=== PATIENT | male | born 1945 | race Caucasian/White ===

== ENCOUNTER 2017-02-24 08:10 | Day surgery (SDC) | payer MEDICARE, OTHER ==
[~2017-02-24] VITALS: Ht 182.9 cm; Wt 117.0 kg
[~2017-02-24 08:10] MED LIST: ASPI-973 PO; CHOL200025 PO; CREST10T PO; DULO60CA42 PO; FURO40TA4 PO; GABA-500 PO; INSU3INS3 SUBQ; LIP40 PO; LISI-567 PO; LORA2TAB PO; Lactated Ringer's 1,000 ML IV ONE; METF500T4 PO; METO10TA3 PO; OXYC-474 PO; POTA10TA12 PO; PREG75CA PO; RIVA15TA PO; SOTA80TA PO; TAMS0.4C98 PO; ZYL100 PO
[2017-02-24] MEDS ORDERED: Propofol 10,000 mCg/mL 20 mL Inj ONE (08:11)
[2017-02-24 08:21] VITALS: BP 121/69; PULSE 64; RESP 16; O2SAT 96
[2017-02-24] MEDS ORDERED: Lactated Ringer's 1,000 ML IV SCH (08:23)
[2017-02-24] MEDS ORDERED: Ondansetron 2 mg/mL 2 mL Inj IVPUSH PRN (08:25)
[2017-02-24] MEDS ORDERED: MetoCLOpramide 5 mg/mL 2 mL Inj IVPUSH PRN (08:25)
--- NOTE | 2017-02-24 08:38 | PCM.HPANE ---
Patient Data Date of Service: Feb 24, 2017 Surgeon Admitting Provider: Attending Provider:Angelo Saunders MD Primary Care Physician:Bahman Neal MD Other Provider:Bernardo Solano Anesthesia Reason for Visit Colon Cancer Screening, Gerd Ht/WT & BMI Height (Feet): 6 Height (Inches): 0 Weight (Kilograms): 117 Body Mass Index 34.00 Allergies Coded Allergies: No Known Allergies (Verified Allergy, Unknown, 02/23/17) Past Anesthesia History Anesthesia History: Denies:: Abnormal Airway, Anesthesia Reactions, Difficult Intubation, Fam Anesthesia Reaction, Fam Malignant Hypertherm, Malignant Hyperthermia Diabetes History Hx Diabetes?: Yes Type of Diabetes: Type II Glycemic Control: Oral Medication Current Bedside Blood Glucose: 110 MRSA MRSA: No Medications Blood Thinner: Aspirin, Xarelto Last Dose Blood Thinner: Feb 19, 2017 Home Meds Incl Beta [place]: Yes Date Beta [place] Taken: Feb 24, 2017 Time Beta [place] Taken: 0740 Reported Medications Insuln Asp Prt/Insulin Aspart (NovoLOG 70/30 U100 Insulin Flexpen)100 Unit/Ml Unit1 Unit SUBQ HS #1 PENINJ Ref 0 02/23/17 Cholecalciferol (Vitamin D3) (Vitamin D3)2,000 Unit Tablet2,000 Unit PO DAILY 02/23/17 Rivaroxaban (Xarelto)15 Mg Kdnocs47 Mg PO HS 02/23/17 Pregabalin (Lyrica)75 Mg Fppfdll23 Mg PO BID 30 Days Ref 0 02/23/17 Duloxetine (Cymbalta)60 Mg Capsule.dr60 Mg PO DAILY Ref 0 02/23/17 Atorvastatin (Lipitor)40 Mg Tksuaf14 Mg PO DAILY Ref 0 02/23/17 Aspirin 81 Mg Zkrnoo95 Mg PO DAILY Ref 0 02/23/17 Allopurinol 100 Mg Johyyc224 Mg PO BID Ref 0 02/23/17 Potassium Chloride ER 10 Meq Jdgcmw58 Meq PO DIRECTED Ref 0 TAKE WITH FOOD 09/15/15 Gabapentin 100 Mg Lorgjcl998 Mg PO HS 30 Days Ref 0 09/15/15 Lisinopril 20 Mg Ectmdt56 Mg PO DAILY 30 Days Ref 0 09/15/15 Tamsulosin (Flomax)0.4 Mg Capsule0.4 Mg PO DAILY PRN For Urinary Retention Ref 0 09/15/15 Sotalol HCl (Sotalol)80 Mg Vbjotj795 Mg PO BID 30 Days Ref 0 09/15/15 Metformin 500 Mg Aezcly547 Mg PO DAILY Ref 0 09/15/15 Oxycodone (Roxicodone)5 Mg Rguhpc66 Mg PO 2-4 times a day PRN For Pain Ref 0 09/15/15 Metoclopramide 10 Mg Tqmvst71 Mg PO BID PRN For Nausea Ref 0 09/15/15 Lorazepam 2 Mg Tablet2 Mg PO QID PRN For Anxiety Ref 0 09/15/15 Furosemide 40 Mg Ydmmmm55 Mg PO EVERY Tuesday09/15/15 Duloxetine (Cymbalta)60 Mg Capsule.dr60 Mg PO DAILY Ref 0 09/15/15 Rosuvastatin Calcium (Crestor)10 Mg Rumrsp77 Mg PO DAILY 30 Days Ref 0 09/15/15 History History of ENT Problems?: Yes HEENT History: Positive for:: Cataracts (S/P R CORNEAL TRANSPLANT/RT CATARACT EXTRACTION) Dysphagia Hearing Problem Sinus Problem (Chronic sinus difficulty) Denies:: Abnormal Airway Difficult Intubation Denture Type: None Teeth Condition: Within Normal Limits Hx of Heart Problems?: Yes Cardiovascular History: Positive for:: Atrial Fibrillation Congestive Heart Failure (R/T TO MARQUIS) Edema (LASIX PRN) Hypertension Irregular Heartbeat (HX OF MARQUIS ) Valvular Heart Disease Denies:: AICD Cardiac Surgery Chest Pain Heart Murmur (ECHO/SARAH 01/2013) Pacemaker Thrombophlebitis Hx of Respiratory Problem?: No Respiratory History: Positive for:: Dyspnea (R/T HIATAL HERNIA) Use of C-PAP Machine (YAYO+ (PROBABLY TRIGGER FOR A FIB) SLEEP STUDY 2010 /RECHECK 05/2013) Denies:: Asthma COPD Chest Surgery Emphysema Hemoptysis Pneumonia Tuberculosis Hx Neurologic Problems?: Yes Neurological History: Positive for:: Dizziness Headaches Denies:: Alzheimer's Disease CVA Dementia Parkinson's Disease Seizures Hx of GI Problems?: Yes Gastrointestinal History: Positive for:: Gastroesphageal Reflux Hx of Problems?: Yes Genitourinary History: Positive for:: Kidney Stones Denies:: HX of Hemodialysis Urinary Tract Infection HX of Peritoneal Dialysis: No Male Hx: Denies:: Prostate Problems Scrotal Mass Testicular Surgery Skin History: Denies:: History Skin Disorders? Pressure Ulcers Hx Musculoskeletal Problems?: Yes Musculoskeletal History: Positive for:: Back Injury (Chronic back pain) Degenerative Joint Fibromyalgia Musculoskeletal Trauma (S/P ORIF FX LT ANKLE) Denies:: Joint Replacement Hx of Psycho/Social Problems?: Yes Psycho Social History: Positive for:: Anxiety Hx Depression Denies:: Bipolar Disorder Suicide Attempt Hx Surgeries?: Yes (aortic valve/replacement,emily fundiplication,lt ankle, TNA) Hx Any Other Health Problems?: Yes Other History: Positive for:: Hospitalization (hernia repair, see surgeries below.) Denies:: Cancer Endocrine Disease Thyroid Disease History Blood Transfusions: Denies:: Blood Transfuse Reaction Blood Transfusions Hx Diabetes: Yes Hx Alcohol Use: Yes (occas)Hx Substance Use: No Smoking Status: Never Smoker Unknown if Ever Smoker Have You Smoked inLast 12 mo: No Stop/Bang Treated for Sleep Apnea?: Yes Do You Have a CPAP Machine?: Yes YAYO Risk Assessment: High Risk, =/>3 Yes Risk Assessment Category Category 1A: Patient has history of documented sleep apnea, and HAS NOT received any narcotic, sedative or anesthesia administration during this stay. Category 1B: Patient has history of documented sleep apnea, and HAS received any narcotic , sedative or anesthesia administration during this stay Category 2: Patient has SUSPECTED Obstructive Sleep Apnea, and HAS received any narcotic , sedative or anesthesia administration during this stay. Category 3: Patient has SUSPECTED Obstructive Sleep Apnea and HAS NOT received narcotic, sedative or anesthesia administration during this stay. Category 4: Outpatient in Procedural Areas with known sleep apnea or who screen positive for High Risk via the STOP/BANG questionnaire. Exam Exam Vital Signs Vital Signs Date Time Temp Pulse Resp B/P Pulse Ox O2 Delivery O2 Flow Rate FiO2 02/24/17 08:21 36.0 64 16 121/69 96 Room Air General Appearance: Alert, Oriented X3, Cooperative HEENT/AIRWAY: MP 2, Neck Movement (Full), Mouth Opening (Wide) Lungs: Clear to Auscultation, Normal Air Movement Heart: Normal S1, Normal S2 Meds/Labs/Diagnostics Bedside Blood Glucose: 110 Diagnositcs Echo reviewed Plan Impression Patient chart reviewed, patient interviewed and anesthestic plan with risks, benefits, and alternatives discussed, and informed consent obtained. NPO per Anesth. Guidelines: Yes ASA Physical Status: ASA3 Severe Disease Anesthetic Plan: MAC Bene/Risks/Altern/Consents: Yes HP Complete Prior to Induction: Yes Adolfo Rivas MD Feb 24, 2017 08:38
[2017-02-24 09:34] VITALS: BP 121/79; PULSE 64; RESP 16; O2SAT 98
[2017-02-24 09:42] VITALS: BP 142/80; PULSE 65; RESP 12; O2SAT 100
--- NOTE | 2017-02-24 09:44 | PCM.ANEP1 ---
Post Anesthesia PACU Phase 1 Assessment Date of Service: Feb 24, 2017 Vital Signs Vital Signs Date Time Temp Pulse Resp B/P Pulse Ox O2 Delivery O2 Flow Rate FiO2 02/24/17 09:42 65 12 142/80 100 Room Air 02/24/17 09:34 36.4 64 16 121/79 98 Room Air 02/24/17 08:21 36.0 64 16 121/69 96 Room Air Anesthetic Administered: MAC Level of Alertness: Awake, talking VÁSQUEZ's with Equal Strength: Yes Pain: No Nausea or Vomiting: No CV Function & Hydration Stable: Yes Airway Device: Oxygen Delivery: Room Air Lungs: Clear to Auscultation, Normal Air Movement Dermatome Level: Full Sensation PACU Phase 2 Assessment Complications: No Follow up Care: N/A Patient Instructions Provided: N/A Adolfo Rivas MD Feb 24, 2017 09:44
[2017-02-24 09:51] VITALS: BP 140/84; PULSE 56; RESP 12; O2SAT 99
--- NOTE | 2017-02-24 11:04 | ENDO ---
[address] [address] ENDOSCOPY PROCEDURE PATIENT: ARLIN STRICKLAND : 1945 MR#: [id number] ADMIT: 02/24/2017 JOB ID: [id number] DATE OF SERVICE: 02/24/2017 PREOPERATIVE DIAGNOSIS(ES): 1. Gastroesophageal reflux disease. 2. Colorectal cancer screening. POSTOPERATIVE DIAGNOSIS(ES): 1. Distal esophagitis. 2. Recurrent hiatal hernia. 3. Transverse colon polyps. 4. Descending colon polyp. 5. Sigmoid colon polyp. OPERATION: 1. Upper endoscopy with biopsy. 2. Colonoscopy to cecum with snare polypectomy with cautery x2 and cold forceps polypectomy x1. SURGEON: Angelo Saunders MD INDICATIONS: The patient is a 72-year-old man who has a past history of gastroesophageal reflux disease. He had a very large hiatal hernia requiring an open hiatal hernia repair due to comorbidity of obesity. He has recurrent reflux symptoms, but also needs colorectal cancer screening. FINDINGS: His esophagus appeared normal down to the GE junction which was at 40 cm from the incisors. The hiatus was at approximately 43 cm giving him a 3 cm recurrent hiatal hernia. The GE junction had a small area of either esophagitis or perhaps Jack's changes and this was biopsied. There is no gross evidence of malignancy or stricture. The fundus, body, and antrum of the stomach appeared normal. The pylorus and duodenum were normal. He had a good prep. The scope was advanced to the cecum. It was withdrawn over 15 minutes and 3 seconds. Three polyps were identified; one in the transverse, one in the descending, and one in the sigmoid colon. The sigmoid colon polyp was the smallest and that was removed with cold forceps. The other two with cautery and snare, but were in the range of 5 mm. All three specimens were sent to Pathology as separate specimens. Retroflex views of the rectum were normal. I saw no diverticula. DESCRIPTION OF PROCEDURE: The procedure and sedation plan was discussed with the patient and nursing staff, and a procedural time-out was held. Dr. Bassam Rivas from anesthesia provided sedation. The Olympus GIF-H180 video endoscope was passed transorally into the second portion of the duodenum, withdrawn with results as stated above and biopsies of the gastroesophageal junction. He was then repositioned. A digital rectal exam was performed. The Olympus PCF-H180AL video colonoscope was passed transanally and advanced into the cecum, withdrawn over 15 minutes and 3 seconds with results of procedure as discussed above. There are no apparent complications. PLAN: I will call him with results of his biopsies.
--- NOTE | 2017-02-28 17:03 | PATH ---
SURGICAL PATHOLOGY Attending Physician:Chayo Prasad CASE STATUS: Signed Out PATIENT NAME: ARLIN STRICKLAND PID: [id number] : 1945 DATE COLLECTED:02/24/2017 15:27 SPECIMEN: 1: Esophagus, Biopsy 2: Colon, Polyp 3: Colon, Polyp 4: Colon, Polyp CLINICAL HISTORY: 1). GASTRO-ESOPHAGEAL JUNCTION BIOPSY 2). TRANSVERSE COLON POLYP X1 3). DESCENDING COLON POLYP X1 4). SIGMOID COLON POLYP X1 FINAL DIAGNOSIS: 1. Gastroesophageal Junction, Biopsy: Squamocolumnar junctional mucosa with chronic active inflammation. Negative for intestinal metaplasia (by Alcian blue stain). See microscopic description. Negative for Helicobacter pylori microorganisms by immunohistochemical stain. Negative for dysplasia or malignancy. 2. Transverse Colon Polyp x1, Biopsy: Fragments of tubular adenoma. 3. Descending Colon Polyp x1, Biopsy: Tubular adenoma. 4. Sigmoid Colon Polyp x1, Biopsy: Tubular adenoma. ICD10: D12.6 GROSS DESCRIPTION: The specimen is received in four formalin filled containers labeled with the patient's name. 1). The specimen is labeled " GEJ " and consists of 3 portions of tissue which aggregate to 0.3 x 0.3 x 0.2 CM. The specimen is entirely submitted in cassette 1A. 2). The specimen is labeled "transverse colon polyp X1" and consists of multiple portions of tissue which aggregate to zero per 5 x 0.5 x 0.4 CM. The specimen is entirely submitted in cassette 2A. 3). The specimen is labeled "descending colon polyp" and consists of a 0.1 x 0.1 x 0.1 CM portion of tissue which is entirely submitted in cassette 3A. 4). The specimen is labeled "sigmoid colon polyp x1" and consists of a 0.3 x 0.3 x 0.2 CM portion of tissue which is entirely submitted in cassette 4A. 02/24/2017DC MICRO DESCRIPTION: 1. An immunohistochemical stain was performed to evaluate for Helicobacter pylori microorganisms. The control stains show appropriate reactivity. An Alcian blue stain was performed to evaluate for intestinal metaplasia. There are areas of focal nonspecific staining, negative for intestinal metaplasia. The control stain shows appropriate reactivity. This test was developed and its performance characteristics determined by [employer]. It has not been cleared or approved by the [place]. [place]. Food and Drug Administration. The FDA has determined that such clearance or approval is not necessary. This test is used for clinical purposes. It should not be regarded as investigational or for research. ICD-9 CODES: CPT CODES: 1: 82521, 44891, 73874 2: 36801 3: 29073 4: 07318 Electronically Signed Out Isidoro Jaramillo MD [facility] Pathology [facility] [address], [place] [address] Technical component performed at [facility], [facility] [address], [place], [address]
== END 2017-02-24 23:59 | disposition home or self-care (01) ==
LOC: END 08:10
PROVIDERS: ATTEND Surgery
DX: Z12.11 Encounter for screening for malignant neoplasm of colon (principal); D12.3 Benign neoplasm of transverse colon; D12.4 Benign neoplasm of descending colon; D12.5 Benign neoplasm of sigmoid colon; K20.9 Esophagitis, unspecified; K44.9 Diaphragmatic hernia without obstruction or gangrene; K21.9 Gastro-esophageal reflux disease without esophagitis; I10 Essential (primary) hypertension; E78.5 Hyperlipidemia, unspecified; I50.9 Heart failure, unspecified; I48.0 Paroxysmal atrial fibrillation; I35.9 Nonrheumatic aortic valve disorder, unspecified; E11.9 Type 2 diabetes mellitus without complications; G25.81 Restless legs syndrome; G47.33 Obstructive sleep apnea (adult) (pediatric); G62.9 Polyneuropathy, unspecified; F41.8 Other specified anxiety disorders; M19.90 Unspecified osteoarthritis, unspecified site; Z79.4 Long term (current) use of insulin; Z79.01 Long term (current) use of anticoagulants; Z95.2 Presence of prosthetic heart valve; Z79.84 Long term (current) use of oral hypoglycemic drugs
CPT/HCPCS: 43239; 45380; 45385; 88305; 88313; 88342; J7120